=== PATIENT | male | born 1945 | race Caucasian/White ===

== ENCOUNTER 2022-03-25 05:56 | Day surgery (SDC) | payer BC, SELFPAY ==
[2022-03-19 10:54] VITALS: BMI 32.3
--- NOTE | 2022-03-21 13:47 | MHC.SHP ---
Pre-Procedural Eval Section A Date of Service: 03/21/22 The patient is an INPATIENT: No Changes since office visit: No Cold of Flu in the past 2 weeks, No New Medical Problems, No Changes in Medication and No Patient answered all questions The History & Physical has been completed within 30 days and I have reviewed it.: Yes Section B Chief Complaint: Unspecified exotropia Allergies: Allergies Allergy/AdvReac Type Severity Reaction Status Date / Time ciprofloxacin [From Cipro] Allergy Rash Verified 03/19/22 10:52 Plan Diagnosis/Plan: Unchanged I have reviewed the history and physical and performed a pertinent physical examination on my patient. No changes have occurred unless specified.
--- NOTE | 2022-03-22 08:37 | P.CONAN_ITS ---
Documented by User: Amy Bowser NP 03/22/22 08:39 HPI - Anesthesia Eval Consult details Narrative: 76yo M for Left Eye Muscle medial rectus Resection, lateral rectus recession Medically cleared [facility] Past Medical History Medical History (Updated 03/22/22 @ 12:38 by Rita Farrell, ALIS) Elevated cholesterol History of prostate cancer HTN (hypertension) Obesity (BMI 30.0-34.9) Tubular adenoma of colon Urinary calculi Surgical History Surgical History (Updated 03/19/22 @ 10:52 by Lori Ambrosio RN) History of tonsillectomy Hx of eye surgery Social History Social History Are you a primary career development engineer to a significant other at home: No Do you presently have visiting nurse or other home services: No Patient Tobacco Use Status: Never used Tobacco Use of substances other than those prescribed or required for medical reasons: No Have you been hit, kicked, punched, or otherwise hurt by someone within the past year? If so, by whom?: No Are you DNR?: No Advance Directives: No Advance Directives Information Provided: Yes Advance Directives on File: No Recently lost weight without trying: No Eating poorly because of decreased appetite: No Nutrition Risks: No Nutritional Risk Poor oral hygiene: No Meds Allergies Allergy/AdvReac Type Severity Reaction Status Date / Time ciprofloxacin [From Cipro] Allergy Rash Verified 03/19/22 10:52 Home Medications Medication Instructions Recorded Confirmed Last Taken Type albuterol sulfate 90 mcg/actuation 2 puff inhalation Q4-6H PRN 03/19/22 03/19/22 Unknown History aerosol inhaler Wheezing atorvastatin 80 mg tablet 1 tab PO DAILY 03/19/22 03/19/22 Unknown History valsartan 160 mg tablet 1 tab PO DAILY 03/19/22 03/19/22 Unknown History Exam Exam Date and Time: March 22, 2022 0837 Height,Weight and Vital Signs: Height 5 ft 8 in Weight 96.615 kg Assessment and Plan Assessment Anesthesia Assessment: Chart Reviewed Documented by User: Aleja Bach MD 03/25/22 07:02 [facility] Past Medical History Medical History (Updated 03/22/22 @ 12:38 by Rita Farrell RN) Elevated cholesterol History of prostate cancer HTN (hypertension) Obesity (BMI 30.0-34.9) Tubular adenoma of colon Urinary calculi Family History Family history of problems with anesthesia: No Surgical History Surgical History (Updated 03/19/22 @ 10:52 by Lori Ambrosio RN) History of tonsillectomy Hx of eye surgery History of Problems with Anesthesia: No Social History Social History Are you a primary career development engineer to a significant other at home: No Do you presently have visiting nurse or other home services: No Patient Tobacco Use Status: Never used Tobacco Use of substances other than those prescribed or required for medical reasons: No Have you been hit, kicked, punched, or otherwise hurt by someone within the past year? If so, by whom?: No Are you DNR?: No Advance Directives: No Advance Directives Information Provided: Yes Advance Directives on File: No Recently lost weight without trying: No Eating poorly because of decreased appetite: No Nutrition Risks: No Nutritional Risk Poor oral hygiene: No Meds Allergies Allergy/AdvReac Type Severity Reaction Status Date / Time ciprofloxacin [From Cipro] Allergy Rash Verified 03/19/22 10:52 Home Medications Medication Instructions Recorded Confirmed Last Taken Type albuterol sulfate 90 mcg/actuation 2 puff inhalation Q4-6H PRN 03/19/22 03/19/22 Unknown History aerosol inhaler Wheezing atorvastatin 80 mg tablet 1 tab PO DAILY 03/19/22 03/19/22 Unknown History valsartan 160 mg tablet 1 tab PO DAILY 03/19/22 03/19/22 Unknown History Exam Airway Mallampati Class: II (Right upper cap) TM Dist: >3cm Neck ROM: Full Heart: rrr Lungs: cya Assessment and Plan Assessment Anesthesia Assessment: Anesthesia Plan Discussed Final Anesthetic Review Family History of Problems with Anesthesia: No History of Problems with Anesthesia: No NPO: Yes ASA Class: II Final Preanesthetic Review: No Changes in Pt Med Stat, Meds/Allgs Chart Reviewed and Consent Obtained/Reviewed Patient Risk: Intermediate Procedure Risk: Intermediate Anesthetic Plan Anesthetic Plan: GA Disposition: Standard PACU
[2022-03-25 06:11] VITALS: BP 111/71; PULSE 63; RESP 16; TEMP 36.1; O2SAT 95
[2022-03-25] MEDS: Lactated Ringers 500 ML 50 ML IV (06:36)
--- NOTE | 2022-03-25 09:09 | HO.PNOPHT ---
Ophthalmology Procedure Procedure Date of Service: 03/25/22 Ophthalmology Viscoelastic: Not Applicable Ophthalmology Lenses: Not Applicable
[2022-03-25 09:10] VITALS: BP 150/77; PULSE 66; RESP 16; TEMP 36.1; O2SAT 95
[2022-03-25 09:15] VITALS: BP 146/78; PULSE 62; RESP 18; O2SAT 95
[2022-03-25 09:20] VITALS: BP 144/58; PULSE 64; RESP 18; O2SAT 95
[2022-03-25 09:26] VITALS: BP 151/64; PULSE 63; RESP 18; O2SAT 95
[2022-03-25] MEDS: oxyCODONE HCl Immed Release 5 MG TABLET PO (09:30)
[2022-03-25] MEDS: Acetaminophen 325 MG TABLET 650 MG PO (09:30)
[2022-03-25 09:41] VITALS: BP 138/81; PULSE 60; RESP 16; O2SAT 96
--- NOTE | 2022-03-25 10:45 | OP_ITS ---
SURGEON: Lenny Nails MD PREOPERATIVE DIAGNOSIS: POSTOPERATIVE DIAGNOSIS: Esotropia. PROCEDURE PERFORMED: Left lateral rectus recession of 7.5 mm and left medial rectus advancement of 6 mm. ESTIMATED BLOOD LOSS: COMPLICATIONS: ANESTHESIA: General. ASSISTANTS: SPECIMENS: INDICATIONS FOR SURGERY: Esotropia. DESCRIPTION OF PROCEDURE: After obtaining informed consent, the patient was brought to the operating room suite and placed in supine position. After adequate sedation, the left eye was prepped and draped in usual sterile fashion. Attention was directed to the left lateral rectus conjunctiva. The area of resection was created overlying the muscle with Kavita scissors. The muscle was then identified in a sequential hook technique. This was followed by placement of double arm suture through the insertion site of the muscle, interlocking stitch at each margin of the muscle. The muscle was then resected from the globe and positioned 7.5 mm posteriorly and reattached to the globe. The overlying conjunctiva was then closed with remnant piece of 6-0 Vicryl suture. Attention was directed to the medial rectus area where the conjunctiva was grasped with forceps overlying the medial rectus muscle. Kavita scissors were used to make incision. This was followed by attempting to identify the medial rectus muscle with sequential muscle-hook technique. The muscle was bound up in scar tissue and placed posteriorly from a prior surgery. We therefore placed a suture through what we believed to be the insertion site of the scar tissue and dissected from the globe and advanced it 6mm closer to the original insertion site. The overlying conjunctiva was then closed with remnant piece of 6-0 Vicryl suture. Antibiotic ointment was placed and lid speculum was removed. Patient tolerated the procedure well and will be seen in followup. MD JER Cornelius/REJI / [id number]
== END 2022-03-25 10:00 | disposition home or self-care (01) ==
PROVIDERS: Visit Provider Ophthalmology
PROC: (CPT 67312; principal; 2022-03-25 07:30)
DX: H50.00 Unspecified esotropia (principal); H50.10 Unspecified exotropia; I10 Essential (primary) hypertension; Z79.899 Other long term (current) drug therapy; Z88.1 Allergy status to other antibiotic agents
CPT/HCPCS: 67312; 67332; J1100; J2250; J2370; J2405